=== PATIENT | male | born 1970 | race Hispanic/Latino ===

== ENCOUNTER 2016-07-11 09:38 | Emergency (ER) | payer OTHER, BC ==
[2016-07-11 09:45] VITALS: TEMP 98.6; O2SAT 96; BMI 35.1
--- NOTE | 2016-07-11 09:55 | ED PDOC ---
Arrival/HPI - General Chief Complaint: Trauma Time Seen by Provider: 07/11/16 09:51 Historian: Patient - History of Present Illness Narrative History of Present Illness (Text): 07/11/16 09:52 46yo male with PMhx of DM and hypercholestrol present with left scapula/ shoulder pain s/p trauma an hour ago. States he slipped on ice and landed on his left scapular. Pain is with abduction of left arm. Denies LOC, focal weakness, taking any medication, any other complaint. Past Medical History - Provider Review Nursing Documentation Reviewed: Yes - Infectious Disease Hx of Infectious Diseases: None - Tetanus Immunization Tetanus Immunization: Unknown - Cardiac Other/Comment: hypercholesteremia - Pulmonary Hx Bronchitis: Yes - Neurological Hx Neurological Disorder: No - HEENT Hx HEENT Disorder: No - Renal Hx Renal Disorder: No - Endocrine/Metabolic Hx Endocrine Disorders: No Hx Diabetes Mellitus Type 1: Yes Hx Diabetes Mellitus Type 2: Yes - Hematological/Oncological Hx Blood Disorders: No - Integumentary Hx Dermatological Disorder: No - Musculoskeletal/Rheumatological Hx Musculoskeletal Disorders: Yes (3 TITANIUM SCREWS TO BACK-WORK RELATED INJURY ) Hx Back Pain: Yes Hx Falls: Yes Other/Comment: disk problem - Gastrointestinal Hx Gastrointestinal Disorders: No - Genitourinary/Gynecological Hx Genitourinary Disorders: No - Psychiatric Hx Depression: No Hx Emotional Abuse: No Hx Physical Abuse: No Hx Substance Use: No - Past Surgical History Past Surgical History: No Previous - Surgical History Hx Musculoskeletal Surgery: Yes (3 TITANIUM SCREWS TO BACK) - Anesthesia Hx Anesthesia: No - Suicidal Assessment Feels Threatened In Home Enviroment: No Family/Social History - Physician Review Nursing Documentation Reviewed: Yes Family/Social History: Unknown Family HX Smoking Status: Former Smoker Hx Alcohol Use: No Hx Substance Use: No Hx Substance Use Treatment: No Allergies/Home Meds Allergies/Adverse Reactions: Allergies No Known Allergies Allergy (Verified 03/02/13 11:25) Home Medications: Home Meds Medication Instructions Recorded Confirmed Fenofibric Acid [Trilipix] 135 mg PO DAILY 03/03/13 05/20/13 Review of Systems - Physician Review All systems were reviewed & negative as marked: Yes - Review of Systems Constitutional: Normal Eyes: Normal ENT: Normal Respiratory: Normal Cardiovascular: Normal Gastrointestinal: Normal Genitourinary Male: Normal Musculoskeletal: Arthralgias (Left scapular/shoulder pain) Skin: Normal Neurological: Normal Endocrine: Normal Hemo/Lymphatic: Normal Psychiatric: Normal Physical Exam Vital Signs Reviewed: Yes Vital Signs Temp Pulse Resp BP Pulse Ox 07/11/16 10:46 79 18 120/90 96 07/11/16 09:42 98.6 F 82 16 199/95 H 96 Temperature: Afebrile Blood Pressure: Normal Pulse: Regular Respiratory Rate: Normal Appearance: Positive for: Well-Appearing, Non-Toxic, Comfortable Pain Distress: None Mental Status: Positive for: Alert and Oriented X 3 - Systems Exam Head: Present: Atraumatic, Normocephalic Pupils: Present: PERRL Extroacular Muscles: Present: EOMI Conjunctiva: Present: Normal Mouth: Present: Moist Mucous Membranes Neck: Present: Normal Range of Motion Respiratory/Chest: Present: Clear to Auscultation, Good Air Exchange. No: Respiratory Distress, Accessory Muscle Use Cardiovascular: Present: Regular Rate and Rhythm, Normal S1, S2. No: Murmurs Abdomen: Present: Normal Bowel Sounds. No: Tenderness, Distention, Peritoneal Signs Back: Present: Normal Inspection Upper Extremity: Present: NORMAL PULSES, Tenderness (Left scapular), Neurovascularly Intact, Capillary Refill < 2s. No: Cyanosis, Edema, Normal ROM (Limited ROM on abduction of left arm up to 90degree secondary to pain), Swelling, Erythema, Temperature Abnormalties, Deformity Lower Extremity: Present: Normal Inspection. No: Edema Neurological: Present: GCS=15, CN II-XII Intact, Speech Normal Skin: Present: Warm, Dry, Normal Color. No: Rashes Psychiatric: Present: Alert, Oriented x 3, Normal Insight, Normal Concentration Medical Decision Making ED Course and Treatment: 07/11/16 11:01 Left shoulder/scapular xray - No acute fracture/dislocation noted Result was DW the pt. Arm placed on a sling. Referred to his PMD/Ortho. TRT ER for any new or worsening symptoms - RAD Interpretation Radiology Orders: 07/11/16 09:51 SCAPULA LEFT [RAD] Stat 07/11/16 09:52 SHOULDER LEFT [RAD] Stat - Medication Orders Current Medication Orders: Discontinued Medications Ketorolac Tromethamine (Toradol) 60 mg IM STAT STA Stop: 07/11/16 09:53 Last Admin: 07/11/16 10:01 Dose: 60 MG IM Administration Charges Document 07/11/16 10:01 DEANNE (Rec: 07/11/16 10:01 DEANNE [id number]) Injection Site MAR Injection Site Right Deltoid Charges for Administration # of IM Administrations 1 Disposition/Present on Arrival - Present on Arrival Any Indicators Present on Arrival: No History of DVT/PE: No History of Uncontrolled Diabetes: No Urinary Catheter: No History of Decub. Ulcer: No History Surgical Site Infection Following: None - Disposition Have Diagnosis and Disposition been Completed?: Yes Diagnosis: Contusion, scapular region, Shoulder pain Disposition: HOME/ ROUTINE Disposition Time: 11:05 Patient Plan: Discharge Condition: STABLE Discharge Instructions (ExitCare): Shoulder Sprain (ED) Additional Instructions: Take medication as directed Follow up with your Doctor/orthopedist Return to Ed for any new or worsening symptoms Prescriptions: Naproxen [Naprosyn] 500 mg PO BID #20 tablet Referrals: Cinda Mills DO [Primary Care Provider] - Follow up with primary Boom Pizarro MD [Staff Provider] - Follow up with primary Forms: WORK NOTE
[2016-07-11 10:49] VITALS: BP 120/90; PULSE 79; RESP 18
--- NOTE | 2016-07-11 10:54 | RAD ---
PROCEDURE: Radiographs of the Left Shoulder HISTORY: pain s/p trauma COMPARISON: No prior. FINDINGS: BONES: Bone alignment and mineralization are normal. There is no acute fracture or bone destruction. JOINTS: Normal. Glenohumeral and acromioclavicular joints preserved. No osteoarthritis. SOFT TISSUES: Normal. OTHER FINDINGS: None. IMPRESSION: No acute fracture or dislocation.
--- NOTE | 2016-07-11 14:49 | RAD ---
PROCEDURE: Left scapula HISTORY: pain s/p trauma COMPARISON: TECHNIQUE: Single-view FINDINGS: A Y-view of the scapula was obtained showing no fracture bony abnormality IMPRESSION: Negative study
== END 2016-07-11 11:50 | disposition home or self-care (01) ==
LOC: ED 09:38
DX: S40.012A Contusion of left shoulder, initial encounter (principal); W00.0XXA Fall on same level due to ice and snow, initial encounter; M25.512 Pain in left shoulder; E78.00 Pure hypercholesterolemia, unspecified; E11.9 Type 2 diabetes mellitus without complications; Z87.891 Personal history of nicotine dependence
CPT/HCPCS: 29240; 73010; 73030; 96372; 99282; J1885